=== PATIENT | female | born 1965 | race Caucasian/White ===

== ENCOUNTER 2021-05-19 09:36 | Inpatient (IN) ==
[2021-05-19] MEDS ORDERED: ALBUT/IPRATROP 3MG/0.5MG NEB 3 ML VIAL NEB STA ×2 (10:11→11:21)
[2021-05-19] MEDS ORDERED: dexAMETHasone**PF** 10 MG/ML VIAL IV ONE (10:11)
[2021-05-19] MEDS ORDERED: SODIUM CHLORIDE 0.9% 1000ML 500 ML IV ONE (10:11)
--- NOTE | 2021-05-19 10:17 | Emergency Department Note ---
Impression & Plan Hypoxia, SOB (shortness of breath), Wheezing, Leukocytosis ED Provider Note NAME: STEPHANIE MALDONADO AGE: 56 SEX: F : 1965 ARRIVES VIA: Walk-In INFORMANT: [Patient] ED PROVIDER(S): [Sergio Morgan MD] CHIEF COMPLAINT: Short of breath HISTORY OF PRESENT ILLNESS: The patient is a 56-year-old female who has had 24 hours of symptoms. She states things rapidly worsened and she feels quite short of breath. She is tight across the chest, she feels herself wheeze. The patient does smoke. She has no diagnosed lung disease. She is not vaccinated against COVID-19, no Covid exposures. The patient complains of a sore throat, stuffy nose, cough and chest tightness. She has had some chills and sweats, no fever. No body aches. No vomiting or diarrhea. Of note, in triage, she was hypoxic and was placed on nasal cannula O2. REVIEW OF SYSTEMS: See HPI for pertinent positives and negatives. A total of ten systems were reviewed and were otherwise negative. PMHx/PSHx: See Below SOCIAL HISTORY: See Below. PHYSICAL EXAM: GENERAL: Patient is in mild respiratory distress. HEENT: No acute trauma, normocephalic atraumatic, mucous membranes moist, no nasal congestion, no scleral icterus. No throat erythema or exudate. NECK: No stridor, no adenopathy, no meningismus, trachea is midline. LUNGS: Increased respiratory rate, wheezing bilaterally. Mild accessory muscle use. No rhonchi. HEART: Without murmurs gallops or rubs, regular rate and rhythm. ABDOMEN: Soft, nontender, bowel sounds positive, no hernias, no peritonitis. EXTREMITIES: No cyanosis or edema, full range of motion of all the joints without pain or difficulty, no signs for acute trauma. NEUROLOGIC: Oriented x 3, no acute motor or sensory deficits, no focal weakness. SKIN: No rash, no jaundice, no diaphoresis. DIFFERENTIAL DIAGNOSIS: Reactive airway disease, pneumonia, pneumothorax, COPD, COVID-19, CHF, infection, cardiac ischemia, pulmonary embolism, bronchitis, musculoskeletal, gastrointestinal, as well as other pathologies. EMERGENCY DEPARTMENT COURSE/PROCEDURES: ECG: Indication was shortness of breath. The ECG shows a sinus tachycardia with a rate of 111. There is some diffuse nonspecific ST change. No ST e levation, no PVCs. The QTc is 429. Continuous Cardiac Monitoring: An order was placed for continuous cardiac monitoring. The monitor shows a rate of 110 with sinus tachycardia. Critical Care Note: I have personally spent 39 minutes of critical care time in the direct management of this patient. This includes bedside care, interpretation of diagnostic studies, and testing, discussion with consultants, patient, and family members, and other required patient management activities. This 39 minutes is in excess of all separately billable procedures. MEDICAL DECISION MAKING: There is a mild leukocytosis, this would be consistent with infection or possibly, the stress of her presentation. There is a normal hemoglobin and platelet count. No coagulopathy. No significant electrolyte abnormality or kidney failure. Lactic acid level is not elevated making sepsis less likely. No worrisome liver enzyme elevation. ECG showed a sinus tachycardia, no acute ischemia. Cardiac enzyme testing x1 is not consistent with acute cardiac injury. Covid testing returned negative. Chest x-ray did not show pneumonia or CHF. On exam, patient seemed short of breath, she was wheezing, she was hypoxic and required O2 supplementation. The patient received IV Decadron, a DuoNeb. She received a second DuoNeb, she received IV saline. The patient has what seems to be an acute bronchitis with a flare of underlying lung disease. She presents hypoxic and tachycardic. She was short of breath. She requires a hospital stay for further care. I spoke to the patient and community case manager. The on-call hospitalist was consulted. Past Med/Surg History Medical History Prediabetes Subclinical hypothyroidism Tobacco use Surgical History H/O sinus surgery History of appendectomy Hx of tonsillectomy Family History Denies family history of Diabetes Heart disease Hypertension Social History Smoking Status: Current every day smoker Hx Alcohol Use: No Feels Safe at Home: Yes Allergies Allergies Allergy/AdvReac Type Severity Reaction Status Date / Time aspirin Allergy Severe nose bleeds Unverified 05/19/21 10:17 Home Meds Home Medications Medication Instructions Recorded Confirmed No Known Home Medications 05/19/21 05/19/21 Results & Data (ED) Vital Signs Vital Signs - 24 hr 05/19/21 09:47 05/19/21 10:04 05/19/21 10:05 Temperature 36.8 C Temperature Source Temporal Artery Scan Pulse Rate 116 H Pulse Rate [Left] Pulse Rate from SpO2 Sensor Respiratory Rate 20 Respiratory Effort / Characteristics Non-Labored Respiratory Depth Normal Blood Pressure 128/80 Blood Pressure [Right Arm] Blood Pressure Mean 96 Blood Pressure Mean [Right Arm] Blood Pressure Position [Right Arm] Pulse Oximetry 92 88 L 88 L Oxygen Delivery Method Room Air Room Air Oxygen Flow Rate Sepsis Recent Fever Within 48 Hours No Sepsis New/Unexplained Change in Mental Status No Sepsis Action Taken by Nursing No Action Required Oxygen Flow Rate - Titration 2 Pulse Oximetry Post Tiitration 95 05/19/21 10:11 05/19/21 10:23 05/19/21 10:30 Temperature Temperature Source Pulse Rate 122 H 102 H Pulse Rate [Left] 103 H Pulse Rate from SpO2 Sensor 86 Respiratory Rate 20 20 17 Respiratory Effort / Characteristics Non-Labored Spontaneous Respiratory Depth Blood Pressure Blood Pressure [Right Arm] Blood Pressure Mean Blood Pressure Mean [Right Arm] Blood Pressure Position [Right Arm] Pulse Oximetry 96 97 96 Oxygen Delivery Method Nasal Cannula Oxygen Flow Rate 2 2 Sepsis Recent Fever Within 48 Hours Sepsis New/Unexplained Change in Mental Status Sepsis Action Taken by Nursing Oxygen Flow Rate - Titration Pulse Oximetry Post Tiitration 05/19/21 11:00 05/19/21 11:30 05/19/21 11:49 Temperature Temperature Source Pulse Rate 89 89 Pulse Rate [Left] 88 Pulse Rate from SpO2 Sensor 91 H 82 Respiratory Rate 18 15 19 Respiratory Effort / Characteristics Non-Labored Spontaneous Respiratory Depth Blood Pressure 106/70 101/68 Blood Pressure [Right Arm] Blood Pressure Mean 82 79 Blood Pressure Mean [Right Arm] Blood Pressure Position [Right Arm] Pulse Oximetry 97 96 96 Oxygen Delivery Method Room Air Oxygen Flow Rate Sepsis Recent Fever Within 48 Hours Sepsis New/Unexplained Change in Mental Status Sepsis Action Taken by Nursing Oxygen Flow Rate - Titration Pulse Oximetry Post Tiitration 05/19/21 13:30 05/19/21 13:37 05/19/21 14:00 Temperature Temperature Source Pulse Rate 87 94 H Pulse Rate [Left] 95 H Pulse Rate from SpO2 Sensor 88 82 Respiratory Rate 15 22 17 Respiratory Effort / Characteristics Respiratory Depth Blood Pressure 116/64 138/67 Blood Pressure [Right Arm] 104/63 Blood Pressure Mean 81 90 Blood Pressure Mean [Right Arm] 76 Blood Pressure Position [Right Arm] Semi-fowlers Pulse Oximetry 91 93 91 Oxygen Delivery Method Room Air Oxygen Flow Rate Sepsis Recent Fever Within 48 Hours Sepsis New/Unexplained Change in Mental Status Sepsis Action Taken by Nursing Oxygen Flow Rate - Titration Pulse Oximetry Post Tiitration Home Medications Current Medication List: was personally reviewed by me Laboratory Data Attestation: I reviewed the patient's lab results. Result diagrams: 05/19/21 10:04 05/19/21 10:04 Lab Results 05/19/21 05/19/21 05/19/21 Range/Units 10:04 10: 10: WBC 11.50 H (4.8-10.8) K/uL RBC 4.90 (4.2-5.4) M/uL Hgb 14.8 (12.0-16.0) g/dL Hct 43.3 (37-47) % MCV 88.4 (80-100) fL MCH 30.2 (25-34) pg MCHC 34.2 (32-36) g/dL RDW Std Deviation 46.3 (36.4-46.3) fL RDW Coeff of Chaya 14.2 (11.5-14.5) % Plt Count 237 (130-400) K/uL MPV 11.0 H (7.4-10.4) fL Immature Gran % (Auto) 0.2 % Neut % (Auto) 78.7 % Lymph % (Auto) 9.7 % Carbon % (Auto) 10.4 % Eos % (Auto) 0.6 % Baso % (Auto) 0.4 % Neut # (Auto) 9.04 H (1.4-6.5) K/uL Lymph # (Auto) 1.12 L (1.2-3.4) K/uL Carbon # (Auto) 1.20 H (0.11-0.59) K/uL Eos # (Auto) 0.07 (0-0.5) K/uL Baso # (Auto) 0.05 (0-0.2) K/uL Immature Gran # (Auto) 0.02 (0.00-0.02) K/uL PT 9.9 (9.0-12.0) Seconds INR 1.0 (0.9-1.1) APTT 27.5 (21.0-31.0) Seconds PTT Ratio 1.0 Sodium 142 (136-145) mmol/L Potassium 3.9 (3.5-5.1) mmol/L Chloride 109 H (98-107) mmol/L Carbon Dioxide 26 (21-32) mmol/L Anion Gap 7.0 (3-11) BUN 12 (7-18) mg/dl Creatinine 0.63 (0.6-1.2) mg/dl Est Cr Clr Drug Dosing 114.9 ml/min Est GFR ( Amer) 115.4 ml/min Est GFR (Non-Af Amer) 99.6 ml/min BUN/Creatinine Ratio 18.8 (10-20) Glucose 112 H (70-99) mg/dl Lactate (0.4-2.0) mmol/L Calcium 9.2 (8.5-10.1) mg/dl Magnesium 2.0 (1.8-2.4) mg/dl Total Bilirubin 0.5 (0.2-1) mg/dl AST 21 (15-37) U/L ALT 15 (12-78) U/L Alkaline Phosphatase 68 (45-117) U/L Troponin I < 0.015 (0-0.045) ng/ml Total Protein 7.7 (6.4-8.2) gm/dl Albumin 3.5 (3.4-5.0) gm/dl Globulin 4.2 H (2.5-4.0) gm/dl Albumin/Globulin Ratio 0.8 L (0.9-2) Procalcitonin (0-0.5) ng/ml COVID-19 Eval Order SARS-CoV-2 (PCR) (Negative) RSV (Molecular) 05/19/21 05/19/21 05/19/21 Range/Units 10:04 10:17 10:22 WBC (4.8-10.8) K/uL RBC (4.2-5.4) M/uL Hgb (12.0-16.0) g/dL Hct (37-47) % MCV (80-100) fL MCH (25-34) pg MCHC (32-36) g/dL RDW Std Deviation (36.4-46.3) fL RDW Coeff of Chaya (11.5-14.5) % Plt Count (130-400) K/uL MPV (7.4-10.4) fL Immature Gran % (Auto) % Neut % (Auto) % Lymph % (Auto) % Carbon % (Auto) % Eos % (Auto) % Baso % (Auto) % Neut # (Auto) (1.4-6.5) K/uL Lymph # (Auto) (1.2-3.4) K/uL Carbon # (Auto) (0.11-0.59) K/uL Eos # (Auto) (0-0.5) K/uL Baso # (Auto) (0-0.2) K/uL Immature Gran # (Auto) (0.00-0.02) K/uL PT (9.0-12.0) Seconds INR (0.9-1.1) APTT (21.0-31.0) Seconds PTT Ratio Sodium (136-145) mmol/L Potassium (3.5-5.1) mmol/L Chloride (98-107) mmol/L Carbon Dioxide (21-32) mmol/L Anion Gap (3-11) BUN (7-18) mg/dl Creatinine (0.6-1.2) mg/dl Est Cr Clr Drug Dosing ml/min Est GFR ( Amer) ml/min Est GFR (Non-Af Amer) ml/min BUN/Creatinine Ratio (10-20) Glucose (70-99) mg/dl Lactate 0.5 (0.4-2.0) mmol/L Calcium (8.5-10.1) mg/dl Magnesium (1.8-2.4) mg/dl Total Bilirubin (0.2-1) mg/dl AST (15-37) U/L ALT (12-78) U/L Alkaline Phosphatase (45-117) U/L Troponin I (0-0.045) ng/ml Total Protein (6.4-8.2) gm/dl Albumin (3.4-5.0) gm/dl Globulin (2.5-4.0) gm/dl Albumin/Globulin Ratio (0.9-2) Procalcitonin < 0.05 (0-0.5) ng/ml COVID-19 Eval Order SARS-CoV-2 (PCR) (Negative) RSV (Molecular) Cancelled 05/19/21 05/19/21 Range/Units 10:26 10:26 WBC (4.8-10.8) K/uL RBC (4.2-5.4) M/uL Hgb (12.0-16.0) g/dL Hct (37-47) % MCV (80-100) fL MCH (25-34) pg MCHC (32-36) g/dL RDW Std Deviation (36.4-46.3) fL RDW Coeff of Chaya (11.5-14.5) % Plt Count (130-400) K/uL MPV (7.4-10.4) fL Immature Gran % (Auto) % Neut % (Auto) % Lymph % (Auto) % Carbon % (Auto) % Eos % (Auto) % Baso % (Auto) % Neut # (Auto) (1.4-6.5) K/uL Lymph # (Auto) (1.2-3.4) K/uL Carbon # (Auto) (0.11-0.59) K/uL Eos # (Auto) (0-0.5) K/uL Baso # (Auto) (0-0.2) K/uL Immature Gran # (Auto) (0.00-0.02) K/uL PT (9.0-12.0) Seconds INR (0.9-1.1) APTT (21.0-31.0) Seconds PTT Ratio Sodium (136-145) mmol/L Potassium (3.5-5.1) mmol/L Chloride (98-107) mmol/L Carbon Dioxide (21-32) mmol/L Anion Gap (3-11) BUN (7-18) mg/dl Creatinine (0.6-1.2) mg/dl Est Cr Clr Drug Dosing ml/min Est GFR ( Amer) ml/min Est GFR (Non-Af Amer) ml/min BUN/Creatinine Ratio (10-20) Glucose (70-99) mg/dl Lactate (0.4-2.0) mmol/L Calcium (8.5-10.1) mg/dl Magnesium (1.8-2.4) mg/dl Total Bilirubin (0.2-1) mg/dl AST (15-37) U/L ALT (12-78) U/L Alkaline Phosphatase (45-117) U/L Troponin I (0-0.045) ng/ml Total Protein (6.4-8.2) gm/dl Albumin (3.4-5.0) gm/dl Globulin (2.5-4.0) gm/dl Albumin/Globulin Ratio (0.9-2) Procalcitonin (0-0.5) ng/ml COVID-19 Eval Order Covid19 at [facility] SARS-CoV-2 (PCR) NEGATIVE (Negative) RSV (Molecular) Administered Medications Discontinued Medications Albuterol (Albut/Ipratrop 3mg/0.5mg Neb 3 Ml Vial) 3 ml NEB NOW STA Stop: 05/19/21 10:12 Last Admin: 05/19/21 10:23 Dose: 3 ml Documented by: [id number] Albuterol (Albut/Ipratrop 3mg/0.5mg Neb 3 Ml Vial) 3 ml NEB NOW STA Stop: 05/19/21 11:22 Last Admin: 05/19/21 11:49 Dose: 3 ml Documented by: [id number] Dexamethasone Sodium Phosphate (DexamethasonePf 10 Mg/Ml Vial) 10 mg IV NOW ONE Stop: 05/19/21 10:12 Last Admin: 05/19/21 10:21 Dose: 10 mg Documented by: [id number] Sodium Chloride (Nss 1000ml) 500 mls @ 999 mls/hr IV .Q31M ONE Stop: 05/19/21 10:41 Last Infusion: 05/19/21 10:55 Dose: 0 mls/hr Documented by: [id number] Admin: 05/19/21 10:21 Dose: 999 mls/hr Documented by: [id number] Imaging Data Radiologist's Impression: Chest X-Ray 05/19/21 09:49 SINGLE VIEW CHEST CLINICAL HISTORY: Dyspnea. FINDINGS: An AP, portable, upright chest radiograph is compared to study dated 02/14/2019. The cardiomediastinal silhouette is unremarkable. The lungs and pleural spaces are clear. No pneumothorax is seen. The bony thorax is grossly intact. IMPRESSION: No active disease in the chest. ACT 112: Negative or not required by law. Electronically signed by: Sergio Vallecillo M.D. 05/19/2021 10:39 AM Discharge Plan Visit Data Chief Complaint: Respiratory Problems Stated Complaint: CAN'T BREATHE,COUGH ED Provider: Sergio Morgan Discharge Problem: Hypoxia, SOB (shortness of breath), Wheezing, Leukocytosis Patient Disposition: Admitted As Inpatient Condition: Fair Forms Stand Alone Forms: [facility] Prescriptions Prescriptions: No Action No Known Home Medications RF: 0 Referrals Referrals: PCP,NO [Physician] -
[2021-05-19 10:19] LABS: Basophils # (auto) 0.05 K/uL (0-0.2); Basophils % (auto) 0.4 %; Eosinophils # (auto) 0.07 K/uL (0-0.5); Eosinophils % (auto) 0.6 %; Hematocrit (blood only) 43.3 % (37-47); Hemoglobin 14.8 g/dL (12.0-16.0); Immature Granulocytes # (auto) 0.02 K/uL (0.00-0.02); Immature Granulocytes % (auto) 0.2 %; Lymphocytes # (auto) 1.12 K/uL (1.2-3.4); Lymphocytes % (auto) 9.7 %; Mean Corpuscular Hemoglobin 30.2 pg (25-34); Mean Corpuscular Hgb Conc 34.2 g/dL (32-36); Mean Corpuscular Volume 88.4 fL (80-100); Monocytes % (auto) 10.4 %; Neutrophils # (auto) 9.04 K/uL (1.4-6.5); Neutrophils % (auto) 78.7 %; Platelet Count 237 K/uL (130-400); RDW Coefficient of Variation 14.2 % (11.5-14.5); RDW Standard Deviation 46.3 fL (36.4-46.3)
[2021-05-19 10:38] LABS: Alanine Aminotransferase 15 U/L (12-78); Albumin Level 3.5 gm/dl (3.4-5.0); Aspartate Aminotransferase 21 U/L (15-37); BUN Creatinine Ratio 18.8 (10-20); Blood Urea Nitrogen 12 mg/dl (7-18); Calcium 9.2 mg/dl (8.5-10.1); Carbon Dioxide 26 mmol/L (21-32); Chloride 109 mmol/L (98-107); Creatinine Clr Calc Pharmacy 114.9 ml/min; Est GFR (African American) 115.4 ml/min; Est GFR (Non-African American) 99.6 ml/min; Glucose 112 mg/dl (70-99); Potassium 3.9 mmol/L (3.5-5.1); Sodium 142 mmol/L (136-145)
--- NOTE | 2021-05-19 10:40 | XRay Report ---
SINGLE VIEW CHEST CLINICAL HISTORY: Dyspnea. FINDINGS: An AP, portable, upright chest radiograph is compared to study dated 02/14/2019. The cardiome diastinal silhouette is unremarkable. The lungs and pleural spaces are clear. No pneumothorax is seen . The bony thorax is grossly intact. IMPRESSION: No active disease in the chest. ACT 112: Negative or not required by law. Electronically signed by: Sergio Vallecillo M.D. 05/19/2021 10:39 AM
[2021-05-19 10:42] LABS: Partial Thromboplastin Time 27.5 Seconds (21.0-31.0); Prothrombin Time 9.9 Seconds (9.0-12.0)
[2021-05-19 10:43] LABS: Albumin Globulin Ratio 0.8 (0.9-2); Alkaline Phosphatase 68 U/L (45-117); Bilirubin,Total 0.5 mg/dl (0.2-1); Globulin 4.2 gm/dl (2.5-4.0); Total Protein 7.7 gm/dl (6.4-8.2); Troponin I < 0.015 ng/ml (0-0.045)
--- NOTE | 2021-05-19 12:45 | History & Physical Report ---
Date of Service May 19, 2021 Assessment & Plan (1) Acute respiratory failure with hypoxia: Plan: -[facility] -Patient presenting from home with reports of worsening shortness of breath, rhinorrhea, congestion x 1 day -In the ED, saturating 88% on room air, required 2 L of oxygen via nasal cannula. Received nebulizer treatment and is now saturating 96% on room air -CXR negative for acute cardiopulmonary findings -Suspect underlying COPD given extensive tobacco use history -S/p dexamethasone 10 mg IV, continue prednisone 40 mg p.o. daily starting tomorrow -Continue supportive care with nebs, flutter valve, incentive spirometry -Check procalcitonin, consider antibiotics at that time -Check for RSV -will need outpatient follow-up for PFTs and pulmonary evaluation (2) DVT prophylaxis: Plan: -SQ Lovenox History of Present Illness Chief Complaint: Shortness of breath Primary Care Provider: Arlin Scott MD 56-year-old female with PMH diabetes, subclinical hypothyroidism, tobacco use, and other problems to below who presents the ED for evaluation of shortness of breath. Patient reports that yesterday she developed rhinorrhea and congestion. She reports that she quickly developed shortness of breath and wheezing. She has had a nonproductive cough. Reports chest tightness. Denies chest pain and pressure. Feels like she may have had a fever overnight however did not take her temperature. No lightheadedness, dizziness, diaphoresis, syncopal events. Denies abdominal pain, nausea, vomiting, diarrhea. No urinary symptoms. In the ED, patient was hypoxic on room air at 88%, requiring 2 L of oxygen via nasal cannula. CXR negative for acute cardiopulmonary findings. COVID-19 testing negative. Patient was given nebulizer treatment x 2, IV dexamethasone 10 mg, IVF. She is now saturating well on room air. Allergies Allergy/AdvReac Type Severity Reaction Status Date / Time aspirin Allergy Severe nose bleeds Unverified 05/19/21 10:17 Home Medications Medication Instructions Recorded Confirmed Type No Known Home Medications 05/19/21 05/19/21 History Past Med/Surg History Medical History Prediabetes Subclinical hypothyroidism Tobacco use Surgical History H/O sinus surgery History of appendectomy Hx of tonsillectomy Family History Denies family history of Diabetes Heart disease Hypertension Social History Smoking Status: Current every day smoker Cigarettes Per Day: 10 (1/2PPD); Second Hand Exposure: No; Do You Dip or Chew Tobacco: No; Hx Alcohol Use: No Hx Substance Use: No Preferred Language: Colombian Communication Ability: Effective Ammonia Solution Preparer Required: No Beliefs That Will Affect Care: None Current Living Situation: Spouse Other Information That Helps Us Care for You: No Feels Safe at Home: Yes Safety Concerns: Feels Safe At This Time Assistive Devices: Glasses Review of Systems Review of Systems: ROS per HPI, all other systems reviewed and negative Physical Exam Constitutional: WD/WN, vitals as above Eyes: PERRL, conjunctivae normal, anicteric sclerae ENMT: external ear and nose normal, oropharynx normal Respiratory: normal respiratory effort; no respiratory distress Auscult ation: + diminished lung sounds, + rhonchi (Scattered) and + wheezes (Faint, scattered, end expiratory) Cardiovascular: Rate/Rhythm: regular rate and regular rhythm Vessels: normal peripheral pulses Extremities: no edema Gastrointestinal (Abdomen): normal bowel sounds, soft, nontender, no hepatosplenomegaly Musculoskeletal: no cyanosis or clubbing, extremities motor strength 5/5 Skin: no rashes, warm and dry Neurologic: PERRL, EOMI, accommodation nl, no face palsy, no dysarthria Speech / Cognition: + abnormal speech (Stutter, chronic) Psychiatric: A+Ox3, euthymic affect Results & Data Results & Data ([facility]) Vital Signs (Past 12 Hours) Vital Signs Temp Pulse Pulse Resp BP Pulse Ox 05/19/21 11:49 88 19 96 05/19/21 11:30 89 15 101/68 96 05/19/21 11:00 89 18 106/70 97 05/19/21 10:30 102 H 17 96 05/19/21 10:23 103 H 20 97 05/19/21 10:11 122 H 20 96 05/19/21 10:05 88 L 05/19/21 10:04 88 L 05/19/21 09:47 36.8 C 116 H 20 128/80 92 Laboratory Results Short CBC 05/19/21 Range/Units 10:04 WBC 11.50 H (4.8-10.8) K/uL Hgb 14.8 (12.0-16.0) g/dL Hct 43.3 (37-47) % Plt Count 237 (130-400) K/uL BMP 05/19/21 10:04 Sodium 142 Potassium 3.9 Chloride 109 H Carbon Dioxide 26 BUN 12 Creatinine 0.63 Glucose 112 H Calcium 9.2 Cardiac Enzymes 05/19/21 Range/Units 10:04 Troponin I < 0.015 (0-0.045) ng/ml Liver Function 05/19/21 Range/Units 10:04 Total Bilirubin 0.5 (0.2-1) mg/dl AST 21 (15-37) U/L ALT 15 (12-78) U/L Alkaline Phosphatase 68 (45-117) U/L Albumin 3.5 (3.4-5.0) gm/dl Diagnostic Findings Chest X-Ray 05/19/21 09:49 SINGLE VIEW CHEST CLINICAL HISTORY: Dyspnea. FINDINGS: An AP, portable, upright chest radiograph is compared to study dated 02/14/2019. The cardiomediastinal silhouette is unremarkable. The lungs and pleural spaces are clear. No pneumothorax is seen. The bony thorax is grossly intact. IMPRESSION: No active disease in the chest. ACT 112: Negative or not required by law. Electronically signed by: Sergio Vallecillo M.D. 05/19/2021 10:39 AM Code Status & VTE Plan VTE Prophylaxis Plan VTE Prophylaxis will be ordered: Yes Supervising Physician Co-Signing Physician Notes Acute hypoxic respiratory failure Possible COPD exacerbation Patient presents with worsening shortness of breath over the last few days. Ports she lives with her grandson who was lately sick few days ago. Patient denies any fever. However does report nonproductive, persistent cough. She does report sore throat and rhinorrhea. COVID-19 is negative. Chest x-ray without any concerns. Minimal elevation in WBC. Patient is afebrile. Procalcitonin is not concerning. proBNP is not sig nificantly elevated. Start patient on p.o. steroids. Continue conservative management. Likely some underlying viral etiology. We will obtain transthoracic echo. I performed a history and physical examination of the patient on 05/19/21, including specifically H&P.. I have discussed the patient's management with the advanced practitioner. Please refer to the Veda Marquez note for the documented findings and plan of care.
--- NOTE | 2021-05-19 14:32 | Electrocardiogram Report ---
Test Reason : Blood Pressure : / mmHG Vent. Rate : 111 BPM Atrial Rate : 111 BPM P-R Int : 172 ms QRS Dur : 082 ms QT Int : 316 ms P-R-T Axes : 072 -22 046 degrees QTc Int : 429 ms Sinus tachycardia Cannot rule out Inferior infarct , age undetermined Abnormal ECG When compared with ECG of 14-FEB-2019 10:17, Minimal criteria for Inferior infarct are now Present Nonspecific T wave abnormality now evident in Lateral leads Confirmed by Jessee Bertrand ([id number]) on 05/19/2021 2:32:25 PM Referred By: ED Confirmed By:Jessee Bertrand
[2021-05-19] MEDS ORDERED: ACETAMINOPHEN 325 MG TAB PO PRN (16:31)
[2021-05-19] MEDS ORDERED: BENZONATATE 100 MG CAPSULE ONE (16:50)
[2021-05-19] MEDS: ALBUT/IPRATROP 3MG/0.5MG NEB 3 ML VIAL NEB SCH ×2 (19:45→19:50)
[2021-05-19] MEDS: ENOXAPARIN INJ 40 MG/0.4 ML SYR SQ SCH (21:52)
[2021-05-19] MEDS: BENZONATATE 100 MG CAPSULE PO PRN (21:55)
[2021-05-20 07:40] LABS: BUN Creatinine Ratio 25.9 (10-20); Calcium 9.3 mg/dl (8.5-10.1); Est GFR (African American) 120.7 ml/min; Est GFR (Non-African American) 104.1 ml/min; Potassium 3.7 mmol/L (3.5-5.1)
[2021-05-20] MEDS: ALBUT/IPRATROP 3MG/0.5MG NEB 3 ML VIAL NEB SCH ×4 (08:01→19:00)
[2021-05-20] MEDS: predniSONE 20 MG TAB PO SCH (08:21)
[2021-05-20 08:43] LABS: Hematocrit (blood only) 40.9 % (37-47); Hemoglobin 13.5 g/dL (12.0-16.0); Mean Corpuscular Hemoglobin 29.9 pg (25-34); Mean Corpuscular Volume 90.7 fL (80-100); Mean Platelet Volume 11.4 fL (7.4-10.4); Platelet Count 243 K/uL (130-400); RDW Coefficient of Variation 14.3 % (11.5-14.5); RDW Standard Deviation 47.7 fL (36.4-46.3); Red Blood Count 4.51 M/uL (4.2-5.4); White Blood Count 10.89 K/uL (4.8-10.8)
--- NOTE | 2021-05-20 09:40 | XCELERA ---
[id number]
[2021-05-20] MEDS ORDERED: COUGH DROP (SUGAR FREE) LOZ 24 LOZ/1 BOX BUCCAL STA (12:01)
--- NOTE | 2021-05-20 12:22 | Pulmonary Consultation ---
Date of Consultation May 20, 2021 Assessment & Plan (1) Cough: (2) Chronic sinusitis: (3) Wheezing: (4) Tobacco abuse: Impression: 56-year-old female with cough wheezing and transient hypoxemia which is now resolved. She does have a tobacco exposure history and COPD is possible however her acute cough may be secondary to sinus issues with postnasal drip. Recommendations: 1. Cough: Recommend treatment with antihistamine decongestant and topical nasal steroid. Saline sinus irrigation may also be beneficial. She can continue Tessalon for her cough if she feels this is beneficial. 2. Chronic sinus complaints: Treatment as above. We will see how she responds. 3. Cannot exclude a component of obstructive lung disease. Would not give the patient a presumptive diagnosis of COPD without PFTs. Given the fact that asthma is on the differential, will check IgE level. We will place her on Arnuity and Anoro. She can continue to use nebulizers as needed. We will see how she responds. 3. This is largely an outpatient work-up. From my perspective, the patient can be dismissed from the hospital with outpatient pulmonary follow-up. She will require PFTs and potentially assessment of exhaled nitric oxide once that testing is available. She does not appear to require oxygen however two-step may be appropriate prior to discharge. 4. Smoking cessation recommended to the patient. The patient states that she is motivated to consider smoking cessation. Thanks for the opportunity participating in the care of this patient. Feel free to contact us with questions History of Present Illness Attending Physician: Efren Marina MD History of Present Illness Asked by hospitalist to evaluate this patient with cough and shortness of jonny th. History is obtained from review electronic medical records and discussion with the patient. Patient is a 56-year-old female with about a 53-21-mpyd-year history of tobacco abuse. She quit smoking about 20 years ago but over the last 2 years is restarted and currently smokes about 1/2 pack/day. She states that she has had a several day history of nonproductive cough shortness of breath and wheezing. Her symptoms became so severe that she was seen in the emergency room. She was noted to be hypoxemic and was placed on nasal cannula. She was also administered steroids. She was admitted and steroids were continued and pulmonary was consulted for additional evaluation management. The patient is not had prior pulmonary evaluation or undergone PFTs previously. Patient does did endorse significant sinus complaints and postnasal drip. She denies any heartburn or reflux. No prior history of eczema. No history of asthma. She is not been on inhalers previously. Allergies Allergy/AdvReac Type Severity Reaction Status Date / Time aspirin Allergy Severe nose bleeds Unverified 05/19/21 10:17 Home Medications Medication Instructions Recorded Confirmed Type No Known Home Medications 05/19/21 05/19/21 History Patient History Medical History Prediabetes Subclinical hypothyroidism Tobacco use Surgical History H/O sinus surgery History of appendectomy Hx of tonsillectomy Family History Denies family history of Diabetes Heart disease Hypertension Social History Smoking Status: Current every day smoker Cigarettes Per Day: 10 (1/2PPD); Second Hand Exposure: No; Do You Dip or Chew Tobacco: No; Hx Alcohol Use: No Hx Substance Use: No Preferred Language: Tamazight Communication Ability: Effective Powder Line Repairer Required: No Beliefs That Will Affect Care: None Current Living Situation: Spouse Other Information That Helps Us Care for You: No Feels Safe at Home: Yes Safety Concerns: Feels Safe At This Time Assistive Devices: Glasses Review of Systems Review of Systems: per H&P Physical Exam Constitutional: WD/WN, vitals as above Neck: trachea midline, no thyromegaly Respiratory: normal respiratory effort; no respiratory distress and no labored breathing Auscultation: + rhonchi and + wheezes Cardiovascular: RRR, no murmur, no edema Gastrointestinal (Abdomen): normal bowel sounds, soft, nontender, no hepatosplenomegaly Musculoskeletal: Extremities: extremities normal to inspection Skin: no rashes, warm and dry Neurologic: Nonfocal exam Lymphatic: no cervical lymphadenopathy Results & Data Results & Data ([facility]) Vital Signs (Past 12 Hours) Vital Signs Temp Pulse Pulse Resp BP Pulse Ox 05/20/21 11:02 77 16 93 05/20/21 08:02 36.8 C 83 22 131/82 91 05/20/21 07:00 91 H 05/20/21 03:15 36.5 C 76 18 99/61 L 91 Laboratory Results 05/20/21 06:56 05/20/21 06:56 Diagnostic Findings Chest x-ray was independently reviewed. No acute infiltrate or airspace opacity. No significant hyperinflation. PG Care Time/CCT Total # of Minutes Spent Total Time Spent with Patient: Total time spent is greater than 50% in coordination of care (as documented) at patient's floor/unit and/or counseling patient: Coding Level of Care Code 35080 Inpt Consult Level 4 Diagnoses Cough R05.9 Chronic sinusitis J32.9 Wheezing R06.2 Tobacco abuse Z72.0
[2021-05-20] MEDS: BENZONATATE 100 MG CAPSULE PO PRN ×2 (12:27→23:15)
[2021-05-20] MEDS: diphenhydrAMINE Capsule 25 MG CAP PO SCH ×2 (12:32→21:14)
[2021-05-20] MEDS: PSEUDOEPHEDRINE HCL 30 MG TAB PO SCH ×2 (13:34→21:15)
[2021-05-20] MEDS: UMECLIDINIUM/VILANTEROL 62.5/25MCG 7 PUFFS/INHALER INH SCH (13:56)
[2021-05-20] MEDS: FLUTICASONE PROPIONATE NA SPR 16 GM BTL SCH ×2 (13:57→21:16)
[2021-05-20] MEDS: FLUTICASONE FUROATE 100MCG 14 PUFFS/INHALER INH SCH ×2 (13:58→21:16)
--- NOTE | 2021-05-20 14:39 | Hospitalist Progress Note ---
Date of Service May 20, 2021 Assessment & Plan (1) Acute respiratory failure with hypoxia: Plan: -Patient presenting from home with reports of worsening shortness of breath, rhinorrhea, congestion x 1 day -In the ED, saturating 88% on room air, required 2 L of oxygen via nasal cannula. Received nebulizer treatment and is now saturating 96% on room air -CXR negative for acute cardiopulmonary findings -Suspect underlying COPD given extensive tobacco use history -S/p dexamethasone 10 mg IV, continue prednisone 40 mg p.o. daily -Continue supportive care with nebs, flutter valve, incentive spirometry -Procalcitonin proBNP is not significantly elevated. No indication for antibiotics at this time. -EKG is nonischemic. Initial troponin was nonconcerning. Will trend troponin. Given worsening shortness of breath, significant wheezing and smoking history; will consider palliative evaluation. Transthoracic echo is pending. (2) DVT prophylaxis: Plan: -SQ Lovenox Admission and Anticipated Discharge Date Admission Date: May 19, 2021 Subjective Reports she continues to have worsening shortness of breath along with wheezing. Reports she feels chest heaviness. Denies any chest pain or any radiation. Denies any headache or dizziness. Denies any palpitations. Does have persistent cough that is nonproductive. Denies any nausea or vomiting. Other review of system is negative. Review of Systems Review of Systems: All systems reviewed & are unremarkable except as noted in HPI & below Physical Exam Physical Exam: General: A&Ox3 HENT: NCAT, MMM, EOMI Eyes: PERRLA Neck: Supple, normal range of motion CVS: normal rate and rhythm Resp: b/l expiratory wheezing apreciated Abdomen: Soft, ND/NT, +BS Extremities: No c/c/e Neuro: face symmetric, no focal deficit Skin: warm and dry, no rashes/lesions/errythema MSK: no joint swelling/erythema Results & Data Results & Data ([facility]) Vital Signs (Past 12 Hours) Vital Signs Temp Pulse Pulse Resp BP BP Pulse Ox 05/20/21 12:42 36.2 C L 106 H 20 121/74 90 05/20/21 11:02 77 16 93 05/20/21 08:02 36.8 C 83 22 131/82 91 05/20/21 07:00 91 H 05/20/21 03:15 36.5 C 76 18 99/61 L 91
[2021-05-20] MEDS: ENOXAPARIN INJ 40 MG/0.4 ML SYR SQ SCH ×2 (21:17→21:20)
[2021-05-21] MEDS: ALBUT/IPRATROP 3MG/0.5MG NEB 3 ML VIAL NEB SCH ×2 (07:05→10:38)
[2021-05-21] MEDS: predniSONE 20 MG TAB PO SCH (07:38)
[2021-05-21] MEDS: diphenhydrAMINE Capsule 25 MG CAP PO SCH (07:38)
[2021-05-21] MEDS: PSEUDOEPHEDRINE HCL 30 MG TAB PO SCH (07:39)
[2021-05-21] MEDS: FLUTICASONE FUROATE 100MCG 14 PUFFS/INHALER INH SCH (07:39)
[2021-05-21] MEDS: FLUTICASONE PROPIONATE NA SPR 16 GM BTL SCH (07:39)
[2021-05-21] MEDS: UMECLIDINIUM/VILANTEROL 62.5/25MCG 7 PUFFS/INHALER INH SCH (07:39)
--- NOTE | 2021-05-21 07:49 | Pulmonology Progress Note ---
Date of Service May 21, 2021 Assessment & Plan (1) Cough: (2) Chronic sinusitis: (3) Wheezing: (4) Tobacco abuse: Plan: Impression: 56-year-old female with cough wheezing and transient hypoxemia which is now resolved. She does have a tobacco exposure history and COPD is possible however her acute cough may be secondary to sinus issues with postnasal drip. She is markedly better with inhalers and treatment for chronic sinus complaints. Recommendations: 1. Cough: Recommend continued treatment with antihistamine decongestant and topical nasal steroid. Saline sinus irrigation may also be beneficial. She can continue Tessalon for her cough if she feels this is beneficial. 2. Chronic sinus complaints: May need imaging as an outpatient 3. Awaiting IgE level. Given her clinical response, would continue Arnuity and Anoro. 3. The patient can be dismissed from the hospital with outpatient pulmonary follow-up. She will require PFTs and potentially assessment of exhaled nitric oxide once that testing is available. She does not appear to require oxygen however two-step may be appropriate prior to discharge. 4. Smoking cessation recommended to the patient. The patient states that she is motivated to consider smoking cessation. Thanks for the opportunity participating in the care of this patient. Feel free to contact us with questions. We will sign off. Feel free to contact us with additional questions Admission and Anticipated Discharge Date Admission Date: May 19, 2021 Subjective Patient seen and examined. EMR reviewed. She feels markedly better this morning. Her cough is almost completely resolved. Wheezing is better but still present. Her shortness of breath is much better. She feels the medical regimen inhalers have been markedly beneficial. She is asking about potential discharge Review of Systems Review of Systems: Negative except as noted above Physical Exam Constitutional: WD/WN, vitals as above Neck: trachea midline, no thyromegaly Respiratory: normal respiratory effort; no respiratory distress and no labored breathing Auscultation: + wheezes Cardiovascular: RRR, no murmur, no edema Gastrointestinal (Abdomen): normal bowel sounds, soft, nontender, no hepatosplenomegaly Musculoskeletal: Extremities: extremities normal to inspection Skin: no rashes, warm and dry Neurologic: Nonfocal exam Lymphatic: no cervical lymphadenopathy Results & Data Results & Data ([facility]) Vital Signs (Past 12 Hours) Vital Signs Temp Pulse Pulse Resp BP BP Pulse Ox 05/21/21 07:06 84 16 93 05/21/21 02:50 37.1 C 84 18 100/63 93 05/21/21 00:35 88 05/20/21 23:07 36.7 C 81 18 107/67 94 Laboratory Results 05/20/21 06:56 05/20/21 06:56 IgE pending Diagnostic Findings No new imaging PG Care Time/CCT Total # of Minutes Spent Total Time Spent with Patient: Total time spent is greater than 50% in coordination of care (as documented) at patient's floor/unit and/or counseling patient: Coding Level of Care Code 53193 Subseq Hosp Care Lvl 2 Diagnoses Cough R05.9 Chronic sinusitis J32.9 Wheezing R06.2 Tobacco abuse Z72.0
--- NOTE | 2021-05-21 09:52 | Hospitalist Progress Note ---
Date of Service May 21, 2021 Assessment & Plan (1) Acute respiratory failure with hypoxia: Plan: -Patient presenting from home with reports of worsening shortness of breath, rhinorrhea, congestion x 1 day -In the ED, saturating 88% on room air, required 2 L of oxygen via nasal cannula. Received nebulizer treatment and is now saturating 96% on room air -CXR negative for acute cardiopulmonary findings -Suspect underlying COPD given extensive tobacco use history -S/p dexamethasone 10 mg IV, continue prednisone 40 mg p.o. daily -Continue supportive care with nebs, flutter valve, incentive spirometry -Procalcitonin proBNP is not significantly elevated. No indication for antibiotics at this time. -EKG is nonischemic. Initial troponin was nonconcerning. Will trend troponin. Given worsening shortness of breath, significant wheezing and smoking history; will consider palliative evaluation. Transthoracic echo: LV systolic function is normal, no regional wall motion abnormalities, EF 55 to 60%, mild tricuspid regurgitation, no prior history to compare. Clinically much better though he still has some wheezing Advised to do steps O2 saturation test and was evaluated by vulnerability assessment analyst who recommended the patient can be discharged We will discharge the patient this afternoon with follow-ups (2) DVT prophylaxis: Plan: -SQ Lovenox Admission and Anticipated Discharge Date Admission Date: May 19, 2021 Subjective 05/21/2021 The patient was seen and examined in medical telemetry unit She passed 2 steps O2 saturation test Still has wheezing but has been moving around in room without much shortness of breath and desaturation She will be discharged home this afternoon Review of Systems Review of Systems: All systems reviewed and are unremarkable except as noted below Respiratory: + cough, + dyspnea on exertion and + wheezing Physical Exam Physical Exam: Sitting on a chair without any acute distress Constitutional: well developed, well nourished and + obese; not ill appearing Eyes: PERRL, conjunctivae normal, anicteric sclerae ENMT: external ear and nose normal, oropharynx normal Neck: trachea midline, no thyromegaly Respiratory: normal respiratory effort, lungs clear to auscultation Cardiovascular: Rate/Rhythm: regular rate, regular rhythm and + tachycardic Heart Sounds: normal S1 and normal S2; no murmur Extremities: no edema Gastrointestinal (Abdomen): Inspection/Auscultation: normal bowel sounds; abdomen not distended Percussion/Palpation: abdomen soft; abdomen nontender Musculoskeletal: No acute arthritis in any joint Neurologic: Alert, awake and oriented x3. No focal sensory and motor deficit appreciated Results & Data Results & Data ([facility]) Vital Signs (Past 12 Hours) Vital Signs Temp Pulse Pulse Pulse Pulse Pulse Resp 05/21/21 08:30 113 H 98 H 93 H 05/21/21 08:00 36.9 C 89 18 05/21/21 07:06 84 16 05/21/21 07:00 85 05/21/21 02:50 37.1 C 84 18 05/21/21 00:35 88 05/20/21 23:07 36.7 C 81 18 Resp Resp Resp BP BP Pulse Ox Pulse Ox 05/21/21 08:30 20 18 16 91 05/21/21 08:00 121/77 94 05/21/21 07:06 93 05/21/21 07:00 05/21/21 02:50 100/63 93 05/21/21 00:35 05/20/21 23:07 107/67 94 Pulse Ox Pulse Ox 05/21/21 08:30 92 92 05/21/21 08:00 05/21/21 07:06 05/21/21 07:00 05/21/21 02:50 05/21/21 00:35 05/20/21 23:07 Laboratory Results Cardiac Enzymes 05/20/21 Range/Units 10:32 Troponin I < 0.015 (0-0.045) ng/ml Medications Administered Current Inpatient Medications Acetaminophen (Acetaminophen 325 Mg Tab) 650 mg PO Q4H PRN PRN Reason: pain/fever Stop: 06/18/21 16:30 Albuterol (Albut/Ipratrop 3mg/0.5mg Neb 3 Ml Vial) 3 ml NEB QIDR KATHERINE Stop: 06/18/21 16:30 Last Admin: 05/21/21 07:05 Dose: 3 ml Documented by: Benzonatate (Benzonatate 100 Mg Capsule) 100 mg PO Q8H PRN PRN Reason: Cough Stop: 06/18/21 16:27 Last Admin: 05/20/21 23:15 Dose: 100 mg Documented by: Diphenhydramine HCl (Diphenhydramine Capsule 25 Mg Cap) 25 mg PO BID KATHERINE Stop: 06/19/21 12:29 Last Admin: 05/21/21 07:38 Dose: 25 mg Documented by: Enoxaparin Sodium (Enoxaparin Inj 40 Mg/0.4 Ml Syr) 40 mg SQ Q24H [facility] Stop: 06/18/21 20:59 Last Admin: 05/20/21 21:20 Dose: Not Given Documented by: Fluticasone Furoate (Fluticasone Furoate 100mcg 14 Puffs/Inhaler) 1 puffs INH BID KATHERINE Stop: 06/19/21 12:29 Last Admin: 05/21/21 07:39 Dose: 1 puffs Documented by: Fluticasone Propionate (Fluticasone Propionate Na Spr 16 Gm Btl) 1 sprays NA BID KATHERINE Stop: 06/19/21 12:29 Last Admin: 05/21/21 07:39 Dose: 1 sprays Documented by: Prednisone (Prednisone 20 Mg Tab) 40 mg PO DAILY [facility] Stop: 05/24/21 09:01 Last Admin: 05/21/21 07:38 Dose: 40 mg Documented by: Pseudoephedrine HCl (Pseudoephedrine Hcl 30 Mg Tab) 30 mg PO BID KATHERINE Stop: 06/19/21 12:29 Last Admin: 05/21/21 07:39 Dose: 30 mg Documented by: Umeclidinium/Vilanterol (Umeclidinium/Vilanterol 62.5/25mcg 7 Puffs/Inhaler) 1 puffs INH DAILY KATHERINE Stop: 06/19/21 12:29 Last Admin: 05/21/21 07:39 Dose: 1 puffs Documented by:
--- NOTE | 2021-05-22 07:28 | Discharge Summary ---
Date of Service May 22, 2021 Admission HPI Per Admitting Provider 56-year-old female with PMH diabetes, subclinical hypothyroidism, tobacco use, and other problems to below who presents the ED for evaluation of shortness of breath. Patient reports that yesterday she developed rhinorrhea and congestion. She reports that she quickly developed shortness of breath and wheezing. She has had a nonproductive cough. Reports chest tightness. Denies chest pain and pressure. Feels like she may have had a fever overnight however did not take her temperature. No lightheadedness, dizziness, diaphoresis, syncopal events. Denies abdominal pain, nausea, vomiting, diarrhea. No urinary symptoms. In the ED, patient was hypoxic on room air at 88%, requiring 2 L of oxygen via nasal cannula. CXR negative for acute cardiopulmonary findings. COVID-19 testing negative. Patient was given nebulizer treatment x 2, IV dexamethasone 10 mg, IVF. She is now saturating well on room air. Admission Exam Per Admitting Provider Constitutional: WD/WN, vitals as above Eyes: PERRL, conjunctivae normal, anicteric sclerae ENMT: external ear and nose normal, oropharynx normal Respiratory: normal respiratory effort; no respiratory distress Auscultation: + diminished lung sounds, + rhonchi (Scattered) and + wheezes (Faint, scattered, end expiratory) Cardiovascular: Rate/Rhythm: regular rate and regular rhythm Vessels: normal peripheral pulses Extremities: no edema Gastrointestinal (Abdomen): normal bowel sounds, soft, nontender, no hepatosplenomegaly Musculoskeletal: no cyanosis or clubbing, extremities motor strength 5/5 Skin: no rashes, warm and dry Neurologic: PERRL, EOMI, accommodation nl, no face palsy, no dysarthria Speech / Cognition: + abnormal speech (Stutter, chronic) Psychiatric: A+Ox3, euthymic affect Principal Diagnosis Acute respiratory failure with hypoxia, COPD exacerbation, chronic sinusitis Discharge Exam Constitutional well developed, well nourished and + obese; not ill appearing Eyes PERRL, conjunctivae normal, anicteric sclerae ENMT external ear and nose normal, oropharynx normal Neck trachea midline, no thyromegaly Respiratory normal respiratory effort, lungs clear to auscultation Cardiovascular Rate/Rhythm: regular rate, regular rhythm and + tachycardic Heart Sounds: normal S1 and normal S2; no murmur Extremities: no edema Gastrointestinal (Abdomen) Inspection/Auscultation: normal bowel sounds; abdomen not distended Percussion/Palpation: abdomen soft; abdomen nontender Discharge Data Allergies Allergy/AdvReac Type Severity Reaction Status Date / Time aspirin Allergy Severe nose bleeds Unverified 05/19/21 10:17 Consultations 05/19/21 11:50 ED Decision to Admit Stat 05/20/21 10:21 Consult Pulmonology Routine Hospital Course (1) Acute respiratory failure with hypoxia: -Patient presenting from home with reports of worsening shortness of breath, rhinorrhea, congestion x 1 day -In the ED, saturating 88% on room air, required 2 L of oxygen via nasal cannula. Received nebulizer treatment and is now saturating 96% on room air -CXR negative for acute cardiopulmonary findings -Suspect underlying COPD given extensive tobacco use history -S/p dexamethasone 10 mg IV, continue prednisone 40 mg p.o. daily -Continue supportive care with nebs, flutter valve, incentive spirometry -Procalcitonin proBNP is not significantly elevated. No indication for ant ibiotics at this time. -EKG is nonischemic. Initial troponin was nonconcerning. Will trend troponin. Given worsening shortness of breath, significant wheezing and smoking history; will consider palliative evaluation. Transthoracic echo: LV systolic function is normal, no regional wall motion abnormalities, EF 55 to 60%, mild tricuspid regurgitation, no prior history to compare. Clinically much better though he still has some wheezing Advised to do steps O2 saturation test and was evaluated by therapeutic recreation director who recommended the patient can be discharged We will discharge the patient this afternoon with follow-ups (2) DVT prophylaxis: -SQ Lovenox Total Time Total Time Spent Total Time Spent (In Minutes): 35 minutes Discharge Plan Discharge Items Patient Disposition: Home - Self-Care Reason For Visit: HYPOXIA, COPD Discharge Diagnosis: Acute respiratory failure with hypoxia, COPD exacerbation, chronic sinusitis Condition on Discharge: Fair Activity: Resume your previous activity Non-emergency contact: Primary Care Provider Call non-emergency contact if: you have any medication questions and your symptoms worsen Follow-up/Referrals: Daniel Elias MD [Physician] - 06/03/21 3:45 pm ([facility] [address] [place] [address] ) Arlin Lucia MD [Primary Care Provider] - (Date & Time 05/28/2021 1:40 PM Provider Arlin Scott MD Department Family Medicine [facility] ) Diet: Regular Addtl Attending Provider Instructions: Please take precautions to avoid fall Try to avoid respiratory stimulants as advised Please take your medications as advised Strictly no smoking Keep appointments with your providers Pending Studies at Discharge: No Stand-Alone Forms: My [facility], Smoking Cessation Medications and DC Order Prescriptions: New prednisone 20 mg Tablet 40 mg PO DAILY 4 Days Qty: 8 RF: 0 benzonatate [Tessalon Perles] 100 mg Capsule 100 mg PO Q8H PRN (Reason: cough) 10 Days Qty: 30 RF: 0 pseudoephedrine HCl [Suphedrine] 30 mg Tablet 30 mg PO BID 15 Days Qty: 30 RF: 0 fluticasone propionate 50 mcg/actuation [place],Suspension 1 spray NA BID 30 Days Qty: 1 RF: 0 Anoro Ellipta 62.5-25 mcg/actuation Blister With Device 1 puff inhalation DAILY 30 Days Qty: 1 RF: 0 Arnuity Ellipta 100 mcg/actuation Blister With Device 1 puff inhalation BID 30 Days Qty: 1 RF: 0 Discharge Orders: Discharge Order (Routine); Ordered 05/21/21 Ordered By: Sis Hay/Other Patient Handouts: Getting Support for Quitting Smoking, Staying Smoke-Free, Kicking the Smoking Habit Admission Data Admit Date/Time: 05/19/21 11:56 Attending Provider: iSs Trevino Admit Provider: Efren Marina Primary Care Provider: Arlin Lucia Other Providers: Efren Marina ; Yunior Deleon ; Sergio Flores ; Edgar Correa ; Daniel Elias ; Isai Curiel Other Interventions: Discharge Summary Assessment (RN) Last Done: 05/21/21 12:11
== END 2021-05-21 13:39 | disposition home or self-care (01) | DRG 189 ==
LOC: ED 09:36 → EDINP 11:56 → SUATTDRO 11:56 → EDINP 16:32 → 2W 18:41